=== PATIENT | female | born 1965 | race Caucasian/White ===

== ENCOUNTER 2024-12-05 16:32 | Emergency (ER) | payer BC ==
[2024-12-05 18:02] LABS: BASOPHILS ABSOLUTE AUTO 0.05 K/uL (0.00-0.10); BASOPHILS PERCENT AUTO 0.5 % (0.1-1.3); EOSINOPHILS ABSOLUTE AUTO 0.17 K/uL (0.00-0.40); EOSINOPHILS PERCENT AUTO 1.6 % (0.0-5.4); IMMATURE GRAN ABSOLUTE AUTO 0.03 K/uL (0.00-0.23); IMMATURE GRAN PERCENT AUTO 0.3 % (0.0-0.7); LYMPHOCYTES ABSOLUTE AUTO 2.46 K/uL (0.8-3.3); LYMPHOCYTES PERCENT AUTO 22.8 % (11.4-47.7); MONOCYTES ABSOLUTE AUTO 0.78 K/uL (0.20-0.90); MONOCYTES PERCENT AUTO 7.2 % (3.3-12.6); NEUTROPHILS ABSOLUTE AUTO 7.31 K/uL (1.0-7.6); NEUTROPHILS PERCENT AUTO 67.6 % (40.0-78.1); PLATELET COUNT,PLT 336 K/uL (130-375); RED BLOOD CELL COUNT 4.61 M/uL (3.77-5.24); WHITE BLOOD CELL COUNT,WBC 10.8 K/uL (3.2-11.0)
[2024-12-05 18:25] LABS: A/G RATIO 1.1 (1.2-2.2); ALANINE AMINOTRANSFERASE,ALT 20 U/L (12-78); ASPARTATE AMNIOTRANSFERASE,AST 11 U/L (15-37); BILIRUBIN TOTAL 0.2 mg/dL (0.2-1.0); BLOOD UREA NITROGEN,BUN 14 mg/dL (7-18); CARBON DIOXIDE,CO2 31 mmol/L (21-32); CHLORIDE,CL 101 mmol/L (100-108); CREATININE 0.9 mg/dL (0.6-1.0); EST CRCL DRUG DOSING (CG) 53.23 mL/min; ESTIMATED GFR 74 mL/min (>60); GLUCOSE RANDOM 131 mg/dL (74-106); POTASSIUM,K 3.6 mmol/L (3.6-5.2); PROTEIN TOTAL,TP 8.4 g/dL (6.4-8.2); SODIUM,NA 139 mmol/L (140-148); TROPONIN I HIGH SENSITIVITY < 4.0 pg/mL (<=60.3)
== END 2024-12-05 19:00 | disposition home or self-care (01) ==
LOC: JP.ED 16:32
DX: R55 Syncope and collapse (principal); I10 Essential (primary) hypertension; Z79.899 Other long term (current) drug therapy
CPT/HCPCS: 36415; 70450; 70450-26; 80053; 83605; 84484; 85025; 85379; 93005; 99284